=== PATIENT | female | born 1935 | race Caucasian/White ===

== ENCOUNTER → 2017-04-22 | Outpatient (CLI) | payer OTHER ==
--- NOTE | 2017-04-22 14:30 | DIAGNOSTIC IMAGING REPORT ---
A-PORT CHECK CLINICAL HISTORY: 82 years-old Female presenting with ovarian cancer. TECHNIQUE/PROCEDURE: Multiple fluoroscopic spot images were obtained as part of an implanted Mediport evaluation. Approximately 1 cc of Optiray 300 was injected. COMPARISON: None. FINDINGS: Appropriate opacification of the catheter without evidence of breakage or kink. However, resistance to flow was met upon injection such that no contrast exited the catheter terminus. No vasculature could be opacified. This limited evaluation for the etiology of blockage. Fluoroscopy dosage (mGy): Not available. Fluoroscopy time: 0.4 minutes. Number of fluoroscopic spot images: 28. IMPRESSION: Contrast could not be administered through the catheter, although no breakage or intracatheter blockage was observed. Follow-up contrast enhanced CT of the chest to be considered to evaluate for the possibility of thrombus at the catheter terminus. Electronically signed by: Yaya Paige M.D. 04/22/2017 2:29 PM Dictated Date/Time: 04/22/2017 2:24 PM
== END | disposition home or self-care (01) ==
LOC: C.RAD 13:32
PROVIDERS: ATTEND Physician Assistant
DX: C78.6 Secondary malignant neoplasm of retroperitoneum and peritoneum (principal); C56.1 Malignant neoplasm of right ovary; T82.898A Other specified complication of vascular prosthetic devices, implants and grafts, initial encounter; X58.XXXA Exposure to other specified factors, initial encounter

== ENCOUNTER → 2017-04-29 | Outpatient (CLI) | payer OTHER ==
[~2017-04-29] MED LIST: OPTIRAY 320 IV PRN
--- NOTE | 2017-04-29 09:05 | DIAGNOSTIC IMAGING REPORT ---
CHEST CT WITH CONTRAST CT DOSE: 226.68 mGy.cm HISTORY: INABILITY TO INFUSE APORT, patient presents with history of ovarian cancer. TECHNIQUE: Multiaxial CT images of the chest were performed following the intravenous administration of 93 mL Optiray 320 intravenous contrast. A dose lowering technique was utilized adhering to the principles of ALARA. COMPARISON: None. FINDINGS: Enlarged multinodular thyroid is noted with calcifications in the region of the inferior left thyroid lobe. Dominant left thyroid nodule is seen, 2.7 x 2.8 cm. No pathologic adenopathy of the chest is identified. The heart is normal in size without pericardial effusion. Atherosclerotic plaquing involves the aortic arch. The opacified pulmonary arterial tree is within normal limits. There is a left subclavian Gejeyi-z-Ockh catheter present with distal tip in the proximal SVC near the confluence of the left brachiocephalic vein. There is pooling of contrast along the distal tip of the catheter seen nicely on image 78 of the axial series suggesting underlying fibrin sheath. No extrinsic compression from adenopathy or mass. No pneumothorax, pleural effusion or focal airspace consolidation. Small right Bochdalek hernia is noted. There is minimal dependent subsegmental bibasilar atelectasis. No focal pulmonary masses or suspicious pulmonary nodules are identified. There is a calcified granuloma present within the apical posterior segment left upper lobe, 3 mm. The central airways are patent. Imaged upper abdominal structures are within normal limits. Soft tissues are unremarkable. No suspicious lytic or blastic bony lesions are identified. IMPRESSION: 1. No evidence of metastatic disease or pathologic adenopathy within chest. 2. Contrast pooling along the distal course of the left subclavian Tigmgs-r-Cxcv catheter is noted suggesting underlying fibrin sheath. 3. Multinodular goiter with dominant left thyroid nodule measuring up to 2.8 cm. Electronically signed by: Ruy Ordaz M.D. 04/29/2017 9:03 AM Dictated Date/Time: 04/29/2017 8:55 AM
== END | disposition home or self-care (01) ==
LOC: C.CTS 08:20
PROVIDERS: ATTEND Physician Assistant
DX: T82.9XXD Unspecified complication of cardiac and vascular prosthetic device, implant and graft, subsequent encounter (principal); C56.1 Malignant neoplasm of right ovary; C78.6 Secondary malignant neoplasm of retroperitoneum and peritoneum; Y83.1 Surgical operation with implant of artificial internal device as the cause of abnormal reaction of the patient, or of later complication, without mention of misadventure at the time of the procedure

== ENCOUNTER 2018-04-30 14:31 | Inpatient (IN) | payer OTHER ==
[~2018-04-30] VITALS: Ht 160 cm; Wt 63.4 kg
--- NOTE | 2018-04-30 15:07 | EMERGENCY ROOM VISIT NOTE ---
History Report prepared by Osirisibneal: Elise Castillo Under the Supervision of: Dr. Cassie Medina D.O. First contact with patient: 14:58 Chief Complaint: SHORTNESS OF BREATH Stated Complaint: SOB, FLUIDS IN STOMACH History of Present Illness The patient is an 83 year old female who presents to the Emergency Room with complaints of worsening shortness of breath for the past 2 weeks. She states she is currently being treated for ovarian cancer by chemotherapy and has developed fluid in her belly and lungs, which is worsening her breathing. Her doctor ordered her several CT scans recently and told her to come to the ED if her breathing worsened, so she came here this afternoon. She has a cough and admits to some "gagging" when the cough is bad. She complains of chest pain but thinks it may be from the cough. She denies any recent fevers. She admits to some abdominal pressure and states her BM's have been loose. She denies any urinary symptoms. The patient has never been a smoker. She admits to pneumonia previously but has never had asthma or COPD. She denies any prior cardiac history. The patient denies taking any daily blood thinners. Source of History: patient Onset: 2 weeks [employer] Position: chest Timing: worsening Modifying Factors (Worsening): other (fluid in abdomen and lungs) Associated Symptoms: + cough, + chest pain, + diarrhea, No fevers, No urinary symptoms Review of Systems See HPI for pertinent positives & negatives. A total of 10 systems reviewed and were otherwise negative. Past Medical & Surgical Medical Problems: (1) Macular degeneration (2) Ovarian cancer Social History Smoking Status: Never Smoker Alcohol Use: none Drug Use: none Marital Status: Housing Status: lives with family Occupation Status: retired Current/Historical Medications Scheduled Amoxicillin & Pot Clavulanate (Augmentin 500MG), 500 MG PO Q8H Multiple Vitamins W/ Minerals (Preservision Areds 2), 1 CAP PO BID Scheduled PRN Ondansetron Hcl (Zofran), 8 MG PO Q8 PRN for Nausea Prochlorperazine Maleate (Compazine), 10 MG PO Q6H PRN for Nausea Allergies Coded Allergies: No Known Allergies (Unverified , 04/30/18) Physical Exam Vital Signs Date Time Temp Pulse Resp B/P (MAP) Pulse Ox O2 Delivery O2 Flow Rate FiO2 04/30/18 16:38 163/115 8/24/18 16:37 92 29 163/115 95 Nasal Cannula 4.0 04/30/18 16:35 91 Nasal Cannula 4.0 04/30/18 16:35 92 04/30/18 15:05 158/77 04/30/18 14:44 36.9 97 20 121/73 92 Room Air Physical Exam GENERAL: alert, appears uncomfortable, well nourished, moderate respiratory distress, non-toxic EYE EXAM: normal conjunctiva, PERRL and EOM's grossly intact OROPHARYNX: no exudate, no erythema, lips, buccal mucosa, and tongue normal and mucous membranes are moist NECK: supple, no nuchal rigidity, no adenopathy, non-tender LUNGS: Increased work of breathing, can only speak in short phrases, diminished bilaterally, fine bibasilar rails, no wheezing. HEART: no murmurs, S1 normal and S2 normal ABDOMEN: abdomen soft, non-tender, normo-active bowel sounds, no masses, no rebound or guarding. BACK: Back is symmetrical on inspection and there is no deformity, no midline tenderness, no CVA tenderness. SKIN: no rashes and no bruising UPPER EXTREMITIES: upper extremities are grossly normal. LOWER EXTREMITIES: Trace bilateral lower extremity edema. NEURO EXAM: Normal sensorium, cranial nerves II-XII grossly intact, normal speech, no gross weakness of arms, no [gross] weakness of legs. Medical Decision & Procedures ER Provider Diagnostic Interpretation: Radiology results have been interpreted by the radiologist and reviewed by me. Outpatient CT Abdomen/Pelvis with Oral IMPRESSION: 1. Enlarging right pleural effusion, now large, with associated compressive atelectasis, noting near complete collapse of the right lower lobe. 2. Small but increasing amount of ascites. Peritoneal implants do not appear significantly changed. 3. Other findings, as above. CHEST ONE VIEW PORTABLE CLINICAL HISTORY: Shortness of breath COMPARISON STUDY: October 28, 2012 FINDINGS: The heart is the upper limits of normal in size. Since the prior study, the patient has developed a moderate right pleural effusion. Associated right lung airspace opacities likely representing compressive atelectasis. There is a right-sided A-Port catheter present. The left lung is clear. Left upper lung zone calcifications, are felt to be secondary to the prior site of an A-Port catheter IMPRESSION: Interval development of a moderate right pleural effusion with associated right lung airspace opacities, likely representing compressive atelectasis Electronically signed by: Vinay Peterson M.D. 04/30/2018 3:26 PM Laboratory Results Test 04/30/18 15:58 04/30/18 15:59 Prothrombin Time 11.4 SECONDS (9.0-12.0) Prothromb Time International Ratio 1.1 (0.9-1.1) Immature Granulocyte % (Auto) 0.2 % White Blood Count 4.13 K/uL (4.8-10.8) Red Blood Count 3.61 M/uL (4.2-5.4) Hemoglobin 10.1 g/dL (12.0-16.0) Hematocrit 31.7 % (37-47) Mean Corpuscular Volume 87.8 fL (80-100) Mean Corpuscular Hemoglobin 28.0 pg (25-34) Mean Corpuscular Hemoglobin Concent 31.9 g/dl (32-36) Platelet Count 283 K/uL (130-400) Mean Platelet Volume 9.2 fL (7.4-10.4) Neutrophils (%) (Auto) 64.3 % Lymphocytes (%) (Auto) 22.0 % Monocytes (%) (Auto) 12.8 % Eosinophils (%) (Auto) 0.5 % Basophils (%) (Auto) 0.2 % Neutrophils # (Auto) 2.65 K/uL (1.4-6.5) Lymphocytes # (Auto) 0.91 K/uL (1.2-3.4) Monocytes # (Auto) 0.53 K/uL (0.11-0.59) Eosinophils # (Auto) 0.02 K/uL (0-0.5) Basophils # (Auto) 0.01 K/uL (0-0.2) Immature Granulocyte # (Auto) 0.01 K/uL (0.00-0.02) Polychromasia 1+ Anisocytosis PRESENT Total Bilirubin 0.5 mg/dl (0.2-1) Aspartate Amino Transf (AST/SGOT) 45 U/L (15-37) Alanine Aminotransferase (ALT/SGPT) 28 U/L (12-78) Alkaline Phosphatase 117 U/L (45-117) Troponin I < 0.015 ng/ml (0-0.045) Pro-B-Type Natriuretic Peptide 707 pg/ml (0-1800) Total Protein 6.4 gm/dl (6.4-8.2) Albumin 2.8 gm/dl (3.4-5.0) Globulin 3.6 gm/dl (2.5-4.0) Albumin/Globulin Ratio 0.8 (0.9-2) Lipase 192 U/L (73-393) Thyroid Stimulating Hormone (TSH) 1.070 uIu/ml (0.300-4.500) Laboratory results per my review. Medications Administered Medications (Trade) Dose Ordered Sig/Aurelio Route Start Time Stop Time Status Last Admin Dose Admin Sodium Chloride 1,000 ml @ 75 mls/hr [id number] STAT IV 04/30/18 15:09 04/30/18 20:52 DC 04/30/18 15:09 75 MLS/HR ED Course 1459: The patient was evaluated in room C7. A complete history and physical exam was performed. 1507: Her oxygen is low at 83%, after placing her on 2L NC, and seeing no change , I have placed her on 4L NC and her Oxygen has increased to 91%. 1509: NSS 1000 ml @ 75 mls/hr IV. 1538: I updated the patient. She is resting comfortably. 1545: I discussed the patients case with Naeem Bates Hematology Oncology. He recommends hospital admission and having her evaluated by Dr. Wayne for a thoracentesis. 1549: I discussed the patients case with Dr. Wayne, [facility]. The patient will be further evaluated. 1622: Dr. Wayne's PA-C informed me the patient will undergo a paracentesis momentarily. 1636: I discussed the patients case with Naeem Oro Hospitalist. The patient will be further evaluated. 1705: I reevaluated the patient. Dr. Wayne is at the bedside performing a paracentesis. 1800: I reevaluated the patient. She is feeling well and resting comfortably. Medical Decision Differential diagnoses includes but is not limited to pneumonia, bronchitis, COPD/Asthma exacerbation, pneumothorax, pulmonary embolism, congestive heart failure, acute coronary syndrome Patient here with shortness of breath and increased work of breathing likely due to right pleural effusion is noted on chest x-ray. I did review the outpatient CT abdomen and pelvis patient had completed yesterday which did not reveal significant ascites or other acute pathology. Patient does have a known diagnosis of ovarian cancer which has been treated by chemotherapy with Dr. Duque over the last 5 years. Patient has not previously had congestive heart failure or pleural effusions. Patient was never smoker, does not wear home O2 or use any breathing treatments. Discussed with her this pleural effusion is likely secondary to her cancer and is likely because of her trouble breathing. Case discussed with her oncologist Dr. Duque who advised patient will need likely inpatient treatment as well as evaluation by thoracic surgery. I did contact Dr. Wayne who was happy to see the patient in consultation. While patient was being evaluated for admission, Dr. Ellis came and saw the patient in the emergency room performed a thoracentesis at bedside. Following this patient was slowly able to be weaned down off of the oxygen and felt improved work of breathing. I have a lower suspicion for PE or occult infectious etiology given the marked improvement in her symptoms following drainage of her pleural effusion. Patient is still at risk given her age and known history of malignancy. I do not otherwise suspect acute CHF given lack of other physical exam findings or history of cardiac problems. Medication Reconcilliation Current Medication List: was personally reviewed by me Blood Pressure Screening Patient's blood pressure: Normal blood pressure Blood pressure disposition: Did not require urgent referral Consults Time Called: 1540 Consulting Physician: Naeem Bates Hematology/Oncology Returned Call: 1545 I discussed the patients case with Naeem Bates Hematology Oncology. He recommends hospital admission and having her evaluated by Dr. Wayne for a thoracentesis. Additional Consults: Time Called: 1547 Consulted Physician: Dr. Wayne, [facility] Returned Call: 1549 Additional Comments: I discussed the patients case with Dr. Wayne [facility]. The patient will be further evaluated. Time Called: 1630 Consulted Physician: Naeem Oro Hospitalist Returned Call: 1636 Additional Comments: I discussed the patients case with [facility]. The patient will be further evaluated. Impression Primary Impression: Hypoxia Additional Impressions: Pleural effusion, right Ovarian cancer Scribe Attestation The scribe's documentation has been prepared under my direction and personally reviewed by me in its entirety. I confirm that the note above accurately reflects all work, treatment, procedures, and medical decision making performed by me. Departure Information Dispostion Being Evaluated By Surgeon Prescriptions Amoxicillin & Pot Clavulanate (AUGMENTIN 500MG) 1 Tab Tab 500 MG PO Q8H for 5 Days, #15 TAB Prov: Nguyen Kraus M.D. 05/01/18 Referrals Helga Gallagher M.D. (PCP) Patient Instructions My [facility] Problem Qualifiers Additional Impressions: Ovarian cancer Laterality: right Qualified Codes: C56.1 - Malignant neoplasm of right ovary
[2018-04-30] MEDS ORDERED: SODIUM CHLORIDE 0.9% 1000ML 1,000 ML IV STA (15:09)
--- NOTE | 2018-04-30 15:27 | DIAGNOSTIC IMAGING REPORT ---
CHEST ONE VIEW PORTABLE CLINICAL HISTORY: Shortness of breath COMPARISON STUDY: October 28, 2012 FINDINGS: The heart is the upper limits of normal in size. Since the prior study, the patient has developed a moderate right pleural effusion. Associated right lung airspace opacities likely representing compressive atelectasis. There is a right-sided A-Port catheter present. The left lung is clear. Left upper lung zone calcifications, are felt to be secondary to the prior site of an A-Port catheter[ IMPRESSION: Interval development of a moderate right pleural effusion with associated right lung airspace opacities, likely representing compressive atelectasis Electronically signed by: Vinay Peterson M.D. 04/30/2018 3:26 PM Dictated Date/Time: 04/30/2018 3:24 PM
[2018-04-30] MEDS ORDERED: ONDA-170 PO (15:32)
[2018-04-30] MEDS ORDERED: PROC10TA PO (15:32)
[2018-04-30] MEDS ORDERED: MULT60CA PO (15:32)
[2018-04-30 16:09] LABS: BASO % 0.2 %; BASO ABS # 0.01 K/uL (0-0.2); EOS % 0.5 %; EOS ABS # 0.02 K/uL (0-0.5); HEMATOCRIT 31.7 % (37-47); HEMOGLOBIN 10.1 g/dL (12.0-16.0); IG# 0.01 K/uL (0.00-0.02); LYMPH ABS # 0.91 K/uL (1.2-3.4); MEAN CELL VOLUME 87.8 fL (80-100); MEAN CORPUSCULAR HGB CONC 31.9 g/dl (32-36); MEAN PLATELET VOLUME 9.2 fL (7.4-10.4); MONO % 12.8 %; MONO ABS # 0.53 K/uL (0.11-0.59); NEUT % 64.3 %; NEUT ABS # 2.65 K/uL (1.4-6.5); PLATELET COUNT 283 K/uL (130-400); RED CELL DISTRIBUTION WIDTH CV 20.5 % (11.5-14.5); RED CELL DISTRIBUTION WIDTH SD 66.2 fL (36.4-46.3); WHITE BLOOD COUNT 4.13 K/uL (4.8-10.8)
[2018-04-30 16:18] LABS: INR 1.1 (0.9-1.1)
[2018-04-30 16:36] LABS: ALBUMIN 2.8 gm/dl (3.4-5.0); ALKALINE PHOSPHATASE 117 U/L (45-117); ALT/SGPT 28 U/L (12-78); AST/SGOT 45 U/L (15-37); BLOOD UREA NITROGEN 12 mg/dl (7-18); CALCIUM 8.5 mg/dl (8.5-10.1); CARBON DIOXIDE 25 mmol/L (21-32); CREATININE 0.77 mg/dl (0.60-1.20); GLUCOSE 109 mg/dl (70-99); LIPASE 192 U/L (73-393); POTASSIUM 3.6 mmol/L (3.5-5.1); SODIUM 134 mmol/L (136-145); TOTAL PROTEIN 6.4 gm/dl (6.4-8.2)
[2018-04-30] MEDS ORDERED: LIDOCAINE HCL 1% 20 ML VIAL ONE (16:40)
[2018-04-30] MEDS ORDERED: TRAMADOL HCL 50 MG TAB PO PRN (17:15)
--- NOTE | 2018-04-30 17:21 | DIAGNOSTIC IMAGING REPORT ---
CHEST ONE VIEW PORTABLE HISTORY: 83 years-old Female right pleural effusion follow-up study in a patient with right pleural effusion with acute shortness of breath COMPARISON: Chest radiograph of same day, CT chest 04/29/2018 TECHNIQUE: Portable AP view of the chest FINDINGS: Right internal jugular Fdvswe-z-Ohim catheter is unchanged. The cardiac silhouette is stable in size. Calcification of the aorta. Status post insertion of a right-sided pleural drainage catheter with markedly decreased size of the right pleural effusion. There is now only trace amount of right pleural fluid noted. Subsegmental bibasilar opacities. Trace right pneumothorax, pleural separation measuring up to 3 mm. mild pulmonary vascular congestion. Degenerative changes of the shoulders and spine. IMPRESSION: 1. Status post placement of a right-sided pleural drainage catheter with decreased size of the right pleural effusion. Trace amount of right pleural fluid persists. 2. Subsegmental bibasilar opacities suggest atelectasis. 3. Tiny right apical pneumothorax. The above report was generated using voice recognition software. It may contain grammatical, syntax or spelling errors. Electronically signed by: Ruy Ordaz M.D. 04/30/2018 5:19 PM Dictated Date/Time: 04/30/2018 5:17 PM
--- NOTE | 2018-04-30 19:59 | SURGICAL CONSULTATION ---
DATE OF CONSULTATION: 04/30/2018 LOCATION: Emergency Room. HISTORY OF PRESENT ILLNESS: This is a delightful 83-year-old female who has a history of ovarian cancer in the past, treated by Dr. Duque who had a rather acute onset over the last 2 weeks of shortness of breath and was found to have a very large unilateral right pleural effusion. I talked to the patient and her here in the Emergency Room for extended period of time. We discussed observation with diuresis, which was doubtful to be in its effectiveness. I also discussed a thoracentesis and also discussed a PleurX. I have elected to place a PleurX. I think it will decrease her hospital stay. If things look good, we will send her home tomorrow. In addition, I am pretty certain with this unilateral effusion, we are dealing with a malignant effusion. For a detailed consultation, please see Mr. Jarrod Garcia's note. We had elected to place a PleurX catheter this afternoon in the Emergency Room. YESSICA
[2018-04-30 20:00] VITALS: BP 132/78; PULSE 103; TEMP 38; O2SAT 94; Ht 160 cm; Wt 63.4 kg
[2018-04-30] MEDS ORDERED: MoRPHine SULFATE 2 MG/ML CARP IV PRN ×2 (20:15)
[2018-04-30] MEDS ORDERED: PIPERACILL/TAZOBAC CONSULT ACTIVE PRN ×2 (20:15)
[2018-04-30] MEDS ORDERED: ONDANSETRON INJ 2 MG/ML 2 ML VIAL IV PRN (20:15)
[2018-04-30] MEDS ORDERED: ALUMINUM/MAGNESIUM/SIMETH (MAALOX MAX) 30 ML UDC PO PRN (20:15)
[2018-04-30] MEDS ORDERED: POLYETHYLENE (MIRALAX) 17 GM PACK PO PRN (20:15)
[2018-04-30] MEDS ORDERED: MAGNESIUM HYDROXIDE SUSP 30 ML UDC PO PRN (20:15)
[2018-04-30] MEDS ORDERED: PIPERACILL/TAZOBAC IV 3.375 GM in DEXTROSE 5% 100ML 100 ML IV ONE (20:30)
--- NOTE | 2018-04-30 20:46 | History and Physical ---
History & Physical Date & Time of Service: Apr 30, 2018 at 20:46 Chief Complaint: Ovarian Cancer Primary Care Physician: Justin Duque M.D. History of Present Illness Source: patient This 83-year-old female with past medical history of metastatic ovarian cancer On chemo treatment for last 5 years Follows with hematology oncology Dr. Duque For the past 1-2 weeks patient has been experiencing shortness of breath, dyspnea on exertion, orthopnea Had a CT chest done in outpatient [facility] clinic, Showed large right-sided pleural effusion Patient was directed by Dr. Duque's office to come to the ER, will need thoracentesis Patient denies of any cough, no fever chills, no chest pain Chest x-ray in ER showed large right-sided pleural effusion CT surgery consulted Had right-sided Pleurx catheter placed followed by arthrocentesis drainage of approximately 1800 mL of serous yellow pleural effusion Past Medical/Surgical History Medical Problems: (1) Macular degeneration Social History Smoking Status: Never Smoker Drug Use: none Marital Status: Occupational Status: retired Multi-Drug Resistant Organisms History of MDRO: No Allergies Coded Allergies: No Known Allergies (Unverified , 04/30/18) Home Medications Scheduled Amoxicillin & Pot Clavulanate (Augmentin 500MG), 500 MG PO Q8H Multiple Vitamins W/ Minerals (Preservision Areds 2), 1 CAP PO BID Scheduled PRN Ondansetron Hcl (Zofran), 8 MG PO Q8 PRN for Nausea Prochlorperazine Maleate (Compazine), 10 MG PO Q6H PRN for Nausea Review of Systems Constitutional: + weakness, + fatigue, No fever, No chills, No sweats, No weight loss, No problem reported Respiratory: + shortness of breath, + dyspnea on exertion, + dyspnea at rest, + problem reported Cardiovascular: + orthopnea Abdomen: No pain, No nausea, No vomiting, No diarrhea, No constipation, No GI bleeding, No problem reported Genitourinary - Female: No dysuria, No urinary frequency, No urinary urgency, No urinary incontinence, No urinary retention, No hematuria, No dysmenorrhea, No menorrhagia, No metrorrhagia, No rash, No vaginal bleeding, No vaginal discharge, No vaginal itching, No vulvodynia, No , No problem reported Neurologic: No memory loss, No paralysis, No weakness, No numbness/tingling, No vertigo, No balance problems, No problem reported Psychiatric: No depression symptoms, No anhedonism, No anxiety, No insomnia, No substance abuse, No problem reported Endocrine: + fatigue Physical Exam Vital Signs Date Time Temp Pulse Resp B/P (MAP) Pulse Ox O2 Delivery O2 Flow Rate FiO2 04/30/18 20:00 38.0 103 22 132/78 94 Room Air 04/30/18 19:05 36.9 90 26 142/71 96 04/30/18 19:01 90 26 96 04/30/18 19:00 142/71 04/30/18 18:31 88 27 96 04/30/18 18:30 150/66 04/30/18 18:01 97 19 94 04/30/18 18:00 134/79 04/30/18 17:31 102 30 95 04/30/18 17:30 120/65 04/30/18 17:16 145/75 04/30/18 17:01 102 28 04/30/18 16:38 163/115 04/30/18 16:37 92 29 163/115 95 Nasal Cannula 4.0 04/30/18 16:35 91 Nasal Cannula 4.0 04/30/18 16:35 92 04/30/18 15:05 158/77 04/30/18 14:44 36.9 97 20 121/73 92 Room Air General Appearance: no apparent distress Head: normocephalic, atraumatic Eyes: normal inspection, PERRL, sclerae normal ENT: normal ENT inspection, hearing grossly normal Neck: no JVD, no carotid bruits, trachea midline Respiratory/Chest: no respiratory distress, no accessory muscle use, + pertinent finding (Right chest wall Pleurx catheter in place) Cardiovascular: regular rate, rhythm, no edema, no gallop, no JVD Abdomen/GI: normal bowel sounds, non tender, soft Extremities/Musculoskelatal: normal capillary refill, no pedal edema, normal range of motion Neurologic/Psych: no motor/sensory deficits, alert, normal mood/affect, oriented x 3 Skin: normal color, warm/dry, no rash Diagnostics Laboratory Results Results Past 24 Hours Test 04/30/18 15:58 04/30/18 15:59 04/30/18 17:00 Range/Units Prothrombin Time 11.4 9.0-12.0 SECONDS Prothromb Time International Ratio 1.1 0.9-1.1 White Blood Count 4.13 4.8-10.8 K/uL Red Blood Count 3.61 4.2-5.4 M/uL Hemoglobin 10.1 12.0-16.0 g/dL Hematocrit 31.7 37-47 % Mean Corpuscular Volume 87.8 80-100 fL Mean Corpuscular Hemoglobin 28.0 25-34 pg Mean Corpuscular Hemoglobin Concent 31.9 32-36 g/dl Platelet Count 283 130-400 K/uL Mean Platelet Volume 9.2 7.4-10.4 fL Neutrophils (%) (Auto) 64.3 % Lymphocytes (%) (Auto) 22.0 % Monocytes (%) (Auto) 12.8 % Eosinophils (%) (Auto) 0.5 % Basophils (%) (Auto) 0.2 % Neutrophils # (Auto) 2.65 1.4-6.5 K/uL Lymphocytes # (Auto) 0.91 1.2-3.4 K/uL Monocytes # (Auto) 0.53 0.11-0.59 K/uL Eosinophils # (Auto) 0.02 0-0.5 K/uL Basophils # (Auto) 0.01 0-0.2 K/uL RDW Standard Deviation 66.2 36.4-46.3 fL RDW Coefficient of Variation 20.5 11.5-14.5 % Immature Granulocyte % (Auto) 0.2 % Immature Granulocyte # (Auto) 0.01 0.00-0.02 K/uL Polychromasia 1+ Anisocytosis PRESENT Sodium Level 134 136-145 mmol/L Potassium Level 3.6 3.5-5.1 mmol/L Chloride Level 98 98-107 mmol/L Carbon Dioxide Level 25 21-32 mmol/L Anion Gap 11.0 3-11 mmol/L Blood Urea Nitrogen 12 7-18 mg/dl Creatinine 0.77 0.60-1.20 mg/dl Est Creatinine Clear Calc Drug Dose 48.4 ml/min Estimated GFR () 81.6 Estimated GFR (Non- 70.4 BUN/Creatinine Ratio 15.8 10-20 Random Glucose 109 70-99 mg/dl Calcium Level 8.5 8.5-10.1 mg/dl Magnesium Level 1.5 1.8-2.4 mg/dl Total Bilirubin 0.5 0.2-1 mg/dl Aspartate Amino Transf (AST/SGOT) 45 15-37 U/L Alanine Aminotransferase (ALT/SGPT) 28 12-78 U/L Alkaline Phosphatase 117 45-117 U/L Troponin I < 0.015 0-0.045 ng/ml Pro-B-Type Natriuretic Peptide 707 0-1800 pg/ml Total Protein 6.4 6.4-8.2 gm/dl Albumin 2.8 3.4-5.0 gm/dl Globulin 3.6 2.5-4.0 gm/dl Albumin/Globulin Ratio 0.8 0.9-2 Lipase 192 73-393 U/L Thyroid Stimulating Hormone (TSH) 1.070 0.300-4.500 uIu/ml Pleural Fluid Source Pleural Fluid Color YELLOW Pleural Fluid Appearance CLOUDY Pleural Fluid WBC 2610 /uL Pleural Fluid RBC 9000 /uL Pleural Fluid pH 7.29 7.3-7.4 Pleural Fluid Polynuclear WBCs % 38.8 % Pleural Fluid Mononuclear WBCs % 61.2 % Pleural Fluid Total Protein 4.0 g/dl Pleural Fluid LDH 2108 IU Pleural Fluid Glucose 71 mg/dl Pleural Fluid Amylase 26 U/L Microbiology Results 04/30/18 Blood Culture, Ordered Pending 04/30/18 Blood Culture, Ordered Pending 04/30/18 Fungal Smear, Received Pending 04/30/18 Fungal Culture, Received Pending 04/30/18 Acid Fast Stain, Received Pending 04/30/18 Mycobacterial Culture, Received Pending 04/30/18 Gram Stain - Final, Resulted 04/30/18 Bacterial Culture, Resulted Pending Diagnostic Radiology CT chest with contrast: 04/29/2018 Done at [facility] Impression: 1 enlarging right pleural effusion, now large, with associated compressive atelectasis, noting near complete collapse of the right lower lobe. 2. Small but increasing amount of ascites. Peritoneal implants do not appear significantly changed. Portable chest x-ray 04/30/2018 Impression: Interval development of a moderate right pleural effusion with associated right lung airspace opacities, likely representing compressive atelectasis Impression Assessment and Plan LARGE RIGHT-SIDED PLEURAL EFFUSION -Possible secondary to metastatic ovarian cancer -CT chest done at outpatient showed large right-sided pleural effusion causing almost complete collapse of the lung -Patient was symptomatic with progressively short of breath, dyspnea on exertion -Chest x-ray in the ER showed large right-sided pleural effusion -Cardiothoracic surgery consulted, appreciate input -Scheduled to have a Pleurx catheter placed with drainage of pleural effusion -Repeat chest x-ray will be ordered post procedure and in a.m. to see improvement SHORTNESS OF BREATH,/DYSPNEA ON EXERTION -Due to above -Patient spiked temperature 38.0, possible secondary to inflammation due to pleural effusion? 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 Had multiple episodes of systemic chemotherapy EGD on 09/2012: Nodular thickening of gastric wall measuring up to 2.1 cm possible stomach metastases, peritoneal carcinomatosis with omental involvement persistently elevated CA 125 level -Patient was not a surgical candidate Continued with chemo treatment -Presents with large right-sided pleural effusion, secondary to malignancy -Overall prognosis remains extremely poor CODE STATUS: DNR/DNI, discussed with patient DVT PROPHYLAXIS high risk secondary to metastatic ovarian cancer Subcu heparin DISPOSITION expected to be discharged home when medically stable Level of Care Telemetry Advanced Directives Existing Living Will: No Existing Power of Circus Laborer: Yes Resuscitation Status DO NOT RESUSCITATE VTE Prophylaxis Risk Level: Moderate Given or contraindicated: Unfractionated heparin SQ
[2018-04-30] MEDS ORDERED: GUAIFENESIN 600 MG TABCR PO ONE (21:00)
[2018-04-30] MEDS: MAGNESIUM SULFATE 1GM / D5W 100 ML IV SCH ×2 (22:11→23:51)
[2018-04-30] MEDS ORDERED: LORAZEPAM 0.5 MG TAB PO PRN ×2 (22:15)
[2018-04-30] MEDS ORDERED: GUAIFENESIN/CODEINE 100MG/10MG 5ML UDC PO PRN (22:15)
--- NOTE | 2018-04-30 22:19 | OPERATIVE REPORT ---
DATE OF OPERATION: 04/30/2018 PREOPERATIVE DIAGNOSIS: Unilateral large right pleural effusion. POSTOPERATIVE DIAGNOSIS: Unilateral large right pleural effusion. PROCEDURE: Insertion of PleurX catheter. SURGEON: Glen Wayne MD DIRECTOR ACUTE: SANTOSH Palacios. (Mr. Lala was present for the entire procedure and sutured it in at the end). ANESTHESIA: Local. DESCRIPTION OF PROCEDURE: With the patient in a left lateral decubitus position, the right chest was prepped and draped in usual sterile fashion after an ultrasound had showed a large amount of homogenous fluid. Prepped and draped in usual sterile fashion about the eighth interspace and posterior axillary line. Skin wheal was raised with a 25 gauge needle and a large bore needle was used to anesthetize the deeper tissues and then draw a yellow serous fluid. A guidewire was inserted through the needle and the needle removed. Insertion site was enlarged to 1 cm. Approximately 12 cm anterior to this, the skin wheal was raised with a 25 gauge needle and a 1 cm incision was made. A long needle was used to anesthetize the tunnel between the [id number] incision. The tunneler was attached to PleurX catheter and directly into the posterior incision. The tunneler was then detached from the PleurX catheter. An introducer sheath with an inner cannula was slid over the guidewire into the pleural cavity and the inner cannula and guidewire removed. PleurX catheter was inserted through this sheath and then the peel away sheath was removed. Two separate 3-0 silk sutures were used to close the posterior incision. A 3-0 silk suture was used to anchor the catheter at the patient's side. Approximately about 1800 mL of a hermosillo yellow fluid was drained and we stopped because of coughing, although she did not have chest pain. This resolved quite quickly. She tolerated it well. X-ray showed almost total resolution of the fluid. She was much improved. Sterile dressings were applied and a cap was placed. She tolerated it well. I attest to the content of the Intraoperative Record and any orders documented therein. Any exception s are noted below.
[2018-04-30] MEDS: ACETAMINOPHEN 325 MG TAB PO PRN (22:24)
[2018-05-01 00:50] VITALS: BP 109/67; PULSE 89; TEMP 37.1; O2SAT 93
[2018-05-01] MEDS: PIPERACILL/TAZOBAC IV 3.375 GM in DEXTROSE 5% 100ML 100 ML IV SCH ×2 (02:06→09:50)
[2018-05-01 04:48] VITALS: BP 117/70; PULSE 82; TEMP 36.8; O2SAT 94
[2018-05-01 06:00] LABS: HEMATOCRIT 28.9 % (37-47); HEMOGLOBIN 9.2 g/dL (12.0-16.0); MEAN CELL VOLUME 87.6 fL (80-100); MEAN CORPUSCULAR HEMOGLOBIN 27.9 pg (25-34); MEAN CORPUSCULAR HGB CONC 31.8 g/dl (32-36); MEAN PLATELET VOLUME 9.3 fL (7.4-10.4); PLATELET COUNT 251 K/uL (130-400); RED CELL DISTRIBUTION WIDTH CV 20.6 % (11.5-14.5); RED CELL DISTRIBUTION WIDTH SD 65.6 fL (36.4-46.3); WHITE BLOOD COUNT 5.27 K/uL (4.8-10.8)
[2018-05-01] MEDS: ACETAMINOPHEN 325 MG TAB PO PRN (06:15)
[2018-05-01 06:27] LABS: CREATININE 0.83 mg/dl (0.60-1.20); POTASSIUM 3.6 mmol/L (3.5-5.1)
--- NOTE | 2018-05-01 07:37 | DIAGNOSTIC IMAGING REPORT ---
CHEST ONE VIEW PORTABLE CLINICAL HISTORY: effusion COMPARISON STUDY: April 30, 2018 FINDINGS: The heart is normal in size. There is a right-sided A-Port catheter. There is a right basilar chest tube. There is no pneumothorax. There is a trace left pleural effusion. There is no significant right pleural effusion. There is diffuse interstitial thickening/edema.[ IMPRESSION: 1. No change the position of the right-sided pleural drainage catheter 2. Trace left pleural effusion. No significant right pleural fluid 3. Mild diffuse interstitial thickening/edema Electronically signed by: Vinay Peterson M.D. 05/01/2018 7:36 AM Dictated Date/Time: 05/01/2018 7:34 AM
[2018-05-01 07:40] VITALS: BP 115/62; PULSE 75; TEMP 36.6; O2SAT 94
--- NOTE | 2018-05-01 07:53 | Medical Consult ---
Consultation Note Date of Service Apr 30, 2018. Consultation Note Consult Dictated #[id number]
[2018-05-01] MEDS ORDERED: GUAIFENESIN 600 MG TABCR PO SCH (09:00)
--- NOTE | 2018-05-01 09:17 | SURGERY PROGRESS NOTE ---
DATE: 05/01/2018 Meri Cui was seen today. She looks great. She is on room air with excellent saturations. She is having some pain in her right chest where we put the PleurX. Her x-ray looks great and we really got very little in the way of any drainage today. It certainly looks to be less than 100 mL. There are no organisms on her Gram stain. The findings certainly suggest a malignant effusion with a LDH of over 2000, pH was 7.29, glucose 71. I doubt we are dealing with any type of an infectious process; however, she did spike a temperature to 38 last night. She is down to 36.6 today. She looks and sounds much better and her x-ray shows no evidence of fluid. At this point, I would allow the patient to be discharged. I will follow her back up in the office. She is significantly better with drainage. We will take care of her chest tube. I will see her back and probably remove her PleurX in the office. We will have the pathology back by that time. I am not overly concerned about any infectious problem as her fever could have been caused by the atelectasis of her entire right lower lobe and middle lobe, however, placing her on p.o. antibiotics until I see her in the office would probably be prudent.
--- NOTE | 2018-05-01 09:42 | CONSULTATION REPORT ---
DATE OF CONSULTATION: 04/30/2018 REASON FOR CONSULTATION: Pleural effusion. HISTORY OF PRESENT ILLNESS: This is an 83-year-old female with a history of ovarian cancer. The patient says that she has been treated for her ovarian cancer for approximately 5 years and has been doing well until approximately 1-2 weeks when she has noted some ongoing shortness of breath that became so severe that she presented to the Emergency Department. She presented to the Emergency Department [facility] on 04/30/2018 where a chest x-ray was undertaken. Patient was noted to have a large right pleural effusion. I questioned the patient on numerous symptoms. There have been no falls, head injuries, visual changes, tinnitus, sore throat, or neck pain. She denies any chest pain. She does note shortness of breath that is present even at rest and with activity such as just carrying on a conversation. She denies fever, shakes, chills, abdominal pain, nausea, vomiting, dysuria, history of DVT, PE, anxiety, depression, stroke, or seizure. In addition to the chest x-ray that demonstrated a large pleural effusion, the patient did have labs where her white blood cell count was 4.1, platelet count was within normal range and hemoglobin and hematocrit noted to be 10.1 and 31.7. Coagulation studies were noted to be normal. Chemistry profile showed sodium is 134. Potassium, BUN, and creatinine were all within the normal range. PAST MEDICAL HISTORY: Includes the followin. History of ovarian cancer. PAST SURGICAL HISTORY: Includes: 1. Hysterectomy. 2. Right subclavian A-port placement. ALLERGIES: None. OUTPATIENT MEDICATION REGIMEN: Includes the followin. Multivitamin daily. 2. Zofran as needed. 3. Compazine as needed. SOCIAL HISTORY: She is a lifetime nonsmoker. FAMILY HISTORY: Negative for premature coronary artery disease. REVIEW OF SYSTEMS: As noted above. PHYSICAL EXAMINATION: VITAL SIGNS: The patient is noted to be afebrile with temperature 36.6, pulse is 75 and regular, respirations are 18 and nonlabored, blood pressure is 115/62. At time of presentation, her pulse ox was 96% on 2 L of oxygen. GENERAL: She is alert. She is oriented x3. She does appear to be somewhat short of breath. HEENT: Head is atraumatic, normocephalic. Eyes: Pupils equal, round, reactive to light and accommodation. Extraocular motions are intact. Ears: Auditory acuity is grossly intact. Nose: Nasal patency was intact. Sinuses are nontender. Mouth is moist without exudates. NECK: Supple. There is no JVD. CARDIOVASCULAR: Regular rate and rhythm. LUNGS: Revealed markedly decreased breath sounds on the right. She did appear to be using some accessory muscles to aid in respiration. ABDOMEN: Soft and nontender. EXTREMITIES: Revealed no cyanosis, clubbing, or edema. NEUROLOGIC: No focal deficits. DIAGNOSTIC DATA: As noted above. IMPRESSION: [age] [id number] female with right pleural effusion. PLAN: Due to the patient's respiratory symptoms, we will plan on draining this pleural effusion. Dr. Wayne has visited with the patient at the bedside. Due to her underlying history of malignancy, he has elected to place a PleurX catheter. Placing the PleurX catheter will enable us to drain the pleural effusion and this will serve both therapeutic and diagnostic purposes. Her pleural fluid will be sent for appropriate cultures as well as other fluid analysis and cytology to help ascertain the cause. Further recommendations will be forthcoming based on her clinical response to the above.
--- NOTE | 2018-05-01 10:38 | Discharge Instructions ---
Discharge Instructions Date of Service May 01, 2018. Admission Reason for Admission: Ovarian Cancer Discharge Discharge Diagnosis / Problem: MALIGNANT RT SIDED PLURAL EFFUSION /OVARINA CA Discharge Goals Goal(s): Decrease discomfort, Improve function, Increase independence, Improve disease control, Diagnostic testing, Therapeutic intervention Activity Recommendations Activity Limitations: resume your previous activity . Instructions / Follow-Up Instructions / Follow-Up HOSPITAL FOLLOW UP : 05/05/2018 @ 11:[address] Yessenia Machado MD Internal Medicine [facility] THORACIC SURGERY FOLLOW UP WITH DR GAYLE EARLY NEXT WEEK , OFFICE WILL CALL WITH APPOINTMENT HEMATOLOGY /ONCOLOGY FOLLOW UP WITH DR TAFOYA IN 2-3 WEEKS OFFICE WILL CALL WITH APPOINTMENT Current Hospital Diet Patient's current hospital diet: AHA Diet (Heart Healthy) Discharge Diet Recommended Diet: AHA Diet (Heart Healthy) Pending Studies Studies pending at discharge: no Medical Emergencies . Who to Call and When: Medical Emergencies: If at any time you feel your situation is an emergency, please call 911 immediately. . Non-Emergent Contact Non-Emergency issues call your: Primary Care Provider . . "Provider Documentation" section prepared by Nguyen Kraus. .
[2018-05-01 11:21] VITALS: BP 115/65; PULSE 74; TEMP 36.4; O2SAT 95
[2018-05-01] MEDS ORDERED: AMOX500T PO (13:38)
[2018-05-01 13:39] VITALS: BP 115/65; PULSE 74; TEMP 36.4; O2SAT 95
--- NOTE | 2018-05-01 13:49 | Discharge Summary ---
Discharge Summary Date of Service May 01, 2018. Discharge Summary Admission Date: Apr 30, 2018 at 16:45 Discharge Date: May 01, 2018 Discharge Disposition: Home Principal Diagnosis: MALIGNANT RT SIDED PLURAL EFFUSION /OVARICA CA Procedures: PROCEDURE: Insertion of PleurX catheter on 04/30/18 SURGEON: Glen Wayne MD Consultations: THORACIC SURGERY DR MULLEN Medication Reconciliation New Medications: Amoxicillin & Pot Clavulanate (Augmentin 500MG) 1 Tab Tab 500 MG PO Q8H for 5 Days, #15 TAB Continued Medications: Multiple Vitamins W/ Minerals (Preservision Areds 2) 1 Cap Cap 1 CAP PO BID Ondansetron Hcl (Zofran) 8 Mg Tab 8 MG PO Q8 PRN for Nausea, TAB Prochlorperazine Maleate (Compazine) 10 Mg Tab 10 MG PO Q6H PRN for Nausea, TAB Referrals At Discharge Follow up Referrals: Physician Referral - Within 1 Week with Glen Wayne MD Admission Information HPI (per Admitting provider): This 83-year-old female with past medical history of metastatic ovarian cancer On chemo treatment for last 5 years Follows with hematology oncology Dr. Duque For the past 1-2 weeks patient has been experiencing shortness of breath, dyspnea on exertion, orthopnea Had a CT chest done in outpatient [facility] clinic, Showed large right-sided pleural effusion Patient was directed by Dr. Duque's office to come to the ER, will need thoracentesis Patient denies of any cough, no fever chills, no chest pain Chest x-ray in ER showed large right-sided pleural effusion CT surgery consulted Had right-sided Pleurx catheter placed followed by arthrocentesis drainage of approximately 1800 mL of serous yellow pleural effusion Physical Exam (per Admitting): General Appearance: no apparent distress Head: normocephalic, atraumatic Eyes: normal inspection, PERRL, sclerae normal ENT: normal ENT inspection, hearing grossly normal Neck: no JVD, no carotid bruits, trachea midline Respiratory/Chest: no respiratory distress, no accessory muscle use, + pertinent finding (Right chest wall Pleurx catheter in place) Cardiovascular: regular rate, rhythm, no edema, no gallop, no JVD Abdomen/GI: normal bowel sounds, non tender, soft Extremities/Musculoskelatal: normal capillary refill, no pedal edema, normal range of motion Neurologic/Psych: no motor/sensory deficits, alert, normal mood/affect, oriented x 3 Skin: normal color, warm/dry, no rash Hospital Course Has mild pain and discomfort on the right chest wall Pleurx catheter placement site No fever or chills No hypoxia, adequate oxygenation in room No cough Evaluated by CT surgery team this morning Stable to be discharged home Patient follow-up with Dr. Mullen early next week PHYSICAL EXAM: General: Very pleasant elderly female, no apparent distress HEENT: Sclera nonicteric, pupils bilateral equal reactive light extraocular muscle intact Heart: Regular S1-S2 no murmur Lungs: Diminished but no wheeze noted, faint bibasilar rales Abdomen: Soft, nontender, mildly distended, small aside Extremity: No lower extremity edema, no calf tenderness Neuro: Alert awake oriented 3, no focal neurological Last 8 Hrs Date Time Temp Pulse Resp B/P (MAP) Pulse Ox O2 Delivery O2 Flow Rate FiO2 05/01/18 13:39 36.4 74 18 95 Room Air 05/01/18 11:21 36.4 74 18 115/65 (82) 95 ASSESSMENT AND PLAN LARGE RIGHT-SIDED PLEURAL EFFUSION - secondary to metastatic ovarian cancer -CT chest done at outpatient showed large right-sided pleural effusion causing almost complete collapse of the lung -Patient was symptomatic with progressively short of breath, dyspnea on exertion -Chest x-ray in the ER showed large right-sided pleural effusion -Cardiothoracic surgery consulted, appreciate input -Status post Pleurx catheter placement with drainage of approximately 1800 cc of pleural effusion Pleural fluid sample sent for cytology, Gram stain -Repeat chest x-ray postprocedure shows no evidence of pneumothorax -Improved right-sided pleural effusion -Patient symptomatically feels much better, resolution of orthopnea, dyspnea on exertion, no hypoxia, adequate oxygenation in room air -She is scheduled to have follow-up with CT surgery early next week -Stable to be discharged home today SHORTNESS OF BREATH,/DYSPNEA ON EXERTION -Resolved -Patient spiked temperature 38.0, possible secondary to inflammation due to pleural effusion? -No further febrile episode -Normal white count, -Blood cultures ordered -Empiric antibiotic with IV Zosyn Cxray this AM : 05/01/18 : IMPRESSION: 1. No change the position of the right-sided pleural drainage catheter 2. Trace left pleural effusion. No significant right pleural fluid 3. Mild diffuse interstitial thickening/edema -will be discharged home today with p.o. 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 Duque at [facility] for metastatic ovarian cancer management CODE STATUS: DNR/DNI, discussed with patient DVT PROPHYLAXIS high risk secondary to metastatic ovarian cancer Subcu heparin DISPOSITION Stable to be discharged home today Total time spent on discharge = 35 mins This includes examination of the patient, discharge planning, medication reconciliation, and communication with other providers. Discharge Instructions Discharge Instructions Date of Service May 01, 2018. Admission Reason for Admission: Ovarian Cancer Discharge Discharge Diagnosis / Problem: MALIGNANT RT SIDED PLURAL EFFUSION /OVARICA CA Discharge Goals Goal(s): Decrease discomfort, Improve function, Increase independence, Improve disease control, Diagnostic testing, Therapeutic intervention Activity Recommendations Activity Limitations: resume your previous activity . Instructions / Follow-Up Instructions / Follow-Up HOSPITAL FOLLOW UP : 05/05/2018 @ 11:[address] Yessenia Machado MD Internal Medicine [facility] THORACIC SURGERY FOLLOW UP WITH DR GAYLE EARLY NEXT WEEK , OFFICE WILL CALL WITH APPOINTMENT HEMATOLOGY /ONCOLOGY FOLLOW UP WITH DR DUQUE IN 2-3 WEEKS OFFICE WILL CALL WITH APPOINTMENT Current Hospital Diet Patient's current hospital diet: AHA Diet (Heart Healthy) Discharge Diet Recommended Diet: AHA Diet (Heart Healthy) Pending Studies Studies pending at discharge: no Medical Emergencies . Who to Call and When: Medical Emergencies: If at any time you feel your situation is an emergency, please call 911 immediately. . Non-Emergent Contact Non-Emergency issues call your: Primary Care Provider . . "Provider Documentation" section prepared by Nguyen Kraus. . Additional Copies To Justin Duque M.D.
== END 2018-05-01 14:39 | disposition home or self-care (01) | DRG 755 ==
LOC: C.EDB 14:33 → C.MED 16:45 → ENRESERV 18:45
PROVIDERS: ADMIT Hospitalist; ATTEND Hospitalist
PROC: 0W9930Z Drainage of Right Pleural Cavity with Drainage Device, Percutaneous Approach (ICD-10-PCS; principal; 2018-04-30)
DX: C56.9 Malignant neoplasm of unspecified ovary (principal); J91.0 Malignant pleural effusion; C78.6 Secondary malignant neoplasm of retroperitoneum and peritoneum; R50.81 Fever presenting with conditions classified elsewhere; R09.02 Hypoxemia; H35.30 Unspecified macular degeneration; Z51.81 Encounter for therapeutic drug level monitoring; Z79.899 Other long term (current) drug therapy; Z66 Do not resuscitate